=== PATIENT | male | born 1995 | race African-American/Black ===

== ENCOUNTER 2017-11-07 06:40 | Day surgery (SDC) | payer OTHER ==
[~2017-11-07] VITALS: Ht 180.3 cm; Wt 127.9 kg
[2017-11-07 07:42] VITALS: BP 138/85; PULSE 67; TEMP 97.2
[2017-11-07] MEDS ORDERED: LEVSIN0.125 M1 PO (08:50)
[2017-11-07] MEDS ORDERED: PRILOSEC 20MG20 MG PO (08:50)
[2017-11-07 09:05] VITALS: BP 119/69; PULSE 80; TEMP 97.4
[2017-11-07 09:15] VITALS: BP 130/67; PULSE 67
[2017-11-07 09:30] VITALS: BP 118/69; PULSE 66
[2017-11-07 09:45] VITALS: BP 112/76; PULSE 72
[2017-11-07 10:00] VITALS: BP 125/77; PULSE 65
== END 2017-11-07 10:10 | disposition home or self-care (01) ==
LOC: SDCO 06:40
DX: K64.0 First degree hemorrhoids (principal); K21.0 Gastro-esophageal reflux disease with esophagitis; K29.30 Chronic superficial gastritis without bleeding; R19.7 Diarrhea, unspecified; R10.84 Generalized abdominal pain; E73.8 Other lactose intolerance; R03.0 Elevated blood-pressure reading, without diagnosis of hypertension; Z68.39 Body mass index [BMI] 39.0-39.9, adult
CPT/HCPCS: J2250; J3010; J7030